=== PATIENT | female | born 1970 | race Caucasian/White ===

== ENCOUNTER 2024-09-29 12:42 | Inpatient (IN) | payer MEDICARE, OTHER ==
[~2024-09-29] VITALS: Ht 162.6 cm; Wt 71.7 kg
[2024-09-29 15:23] LABS: BASOPHILS # (AUTO) 0.1 K/uL (0.0-0.2); BASOPHILS % (AUTO) 0.2 % (0.0-2.0); HEMATOCRIT 29 % (33-45); HEMOGLOBIN 9.7 g/dL (11.5-14.8); LYMPHOCYTES # (AUTO) 30.8 K/uL (0.8-4.8); LYMPHOCYTES % (AUTO) 76.8 % (20.0-44.0); MEAN CORPUSCULAR HEMOGLOBIN 30 PG (26.0-33.0); MEAN CORPUSCULAR HGB CONC 33 g/dl (31.0-36.0); MEAN CORPUSCULAR VOLUME 89 fL (82-100); MONOCYTES # (AUTO) 0.8 K/uL (0.1-1.30); MONOCYTES % (AUTO) 1.9 % (2.0-12.0); NEUTROPHILS # (AUTO) 8.5 K/uL (1.8-8.9); NEUTROPHILS % (AUTO) 21.1 % (43.0-81.0); PLATELET COUNT (AUTO) 530 K/uL (150-450); RED BLOOD CELL COUNT(AUTO) 3.26 MIL/uL (4.0-5.2); RED CELL DISTRIBUTION WIDTH 14.9 % (11.5-15.0)
[2024-09-29 15:25] LABS: WHITE BLOOD COUNT (AUTO) 40.2 K/uL (4.3-11.0)
[2024-09-29 15:27] LABS: INR 0.99 (0.91-1.10); PROTHROMBIN TIME 10.5 SECS (9.2-11.1)
[2024-09-29 15:38] LABS: CALCIUM, SERUM 8.7 mg/dL (8.5-10.1); CREATININE 0.8 mg/dL (0.6-1.3); POTASSIUM 4.2 mmol/L (3.5-5.1)
[2024-09-29 15:50] LABS: APPEARANCE,URINE SLIGHTLY CLOUDY (CLEAR); BILIRUBIN,URINE 1+ (NEGATIVE); COLOR,URINE DARK YELLOW (YELLOW); KETONES,URINE 2+ mg/dL (NEGATIVE); LEUKOCYTE ESTERASE ,URINE NEGATIVE (NEGATIVE); NITRITE, URINE POSITIVE (NEGATIVE); PH,URINE 5.5 (5.0-8.0); PROTEIN,URINE 2+ mg/dl (NEGATIVE); UGLUCOSE NEGATIVE (NEGATIVE)
[2024-09-29 15:50] LABS: LYMPHOCYTES % (MANUAL) 73 % (16-48); MONOCYTES % (MANUAL) 1 % (0-11.0); NEUTROPHILS % (MANUAL) 26 (42-76); PLATELET ESTIMATE DECREASED
[2024-09-29 15:51] LABS: ANISOCYTOSIS 1+; OVALOCYTES 1+
[2024-09-29 15:52] LABS: ALBUMIN 2.4 g/dL (3.4-5.0); BILIRUBIN,DIRECT 0.2 mg/dL (0.0-0.2); BILIRUBIN,TOTAL 0.3 mg/dL (0.2-1.0); TOTAL PROTEIN, SERUM 6.6 g/dL (6.4-8.2)
[2024-09-29] MEDS ORDERED: MIDO5TAB4 PO (16:02)
[2024-09-29] MEDS ORDERED: FAMO20TA8 PO (16:02)
[2024-09-29] MEDS ORDERED: ASCO500T10 PO (16:02)
[2024-09-29] MEDS ORDERED: DOCU100C36 PO (16:02)
[2024-09-29] MEDS ORDERED: ONDA4TAB5 PO (16:02)
[2024-09-29] MEDS ORDERED: ARIP5TAB10 PO (16:02)
[2024-09-29] MEDS ORDERED: FOLI0.8T3 PO (16:02)
[2024-09-29] MEDS ORDERED: SERT50TA12 PO (16:02)
[2024-09-29] MEDS ORDERED: DIVA-78 PO (16:02)
[2024-09-29] MEDS ORDERED: SPIR50TA PO (16:02)
[2024-09-29] MEDS ORDERED: RISP1TAB97 PO (16:02)
[2024-09-29] MEDS ORDERED: LAMO25TA5 PO (16:02)
[2024-09-29] MEDS ORDERED: CYAN100096 PO (16:02)
[2024-09-29] MEDS ORDERED: FURO40TA5 PO (16:02)
[2024-09-29] MEDS ORDERED: MEGE400O4 PO (16:02)
[2024-09-29 16:13] LABS: BLOOD, URINE TRACE Ery/uL (NEGATIVE)
[2024-09-29 16:15] LABS: ADD URINE CULTURE YES; BACTERIA,URINE Few /HPF (None Seen); HYALINE CASTS, URINE Few /LPF (None Seen); MUCUS,URINE Moderate /LPF (None Seen); URINE AMORPHOUS URATE Moderate /HPF (None Seen); WBC,URINE 0-2 /HPF (0-3)
[2024-09-29] MEDS ORDERED: IV NS 0.9% 250 ML IV ONE (16:59)
[2024-09-29] MEDS ORDERED: IOHEXOL-300 100 ML VIAL IV ONE (16:59)
[2024-09-29] MEDS: IV NS 0.9% 500 ML BAG IV ONE (17:00)
[2024-09-29] MEDS: CEFTRIAXONE 1GM BAG (ER ONLY) 50 ML IV ONE (17:30)
[2024-09-29] MEDS ORDERED: ONDANSETRON HCL/PF 4 MG/2 ML VIAL IVP PRN (20:30)
[2024-09-29] MEDS ORDERED: MORPHINE SULFATE INJ 2 MG/ML DISP.SYRIN IV PRN (20:30)
[2024-09-29] MEDS ORDERED: ACETAMINOPHEN 325 MG TABLET PO PRN (20:30)
[2024-09-29] MEDS ORDERED: hydrALAZINE HCL IV 20 MG VIAL IV PRN (20:30)
[2024-09-29 20:35] VITALS: BP 119/93; TEMP 97.7; TEMP 97.9; O2SAT 97
[2024-09-29] MEDS ORDERED: VANCOMYCIN 1 GM /D5W 250 ML PB IV ONE (22:07)
[2024-09-29] MEDS: ENOXAPARIN SODIUM 40 MG/0.4 ML DISP.SYRIN SQ SCH (22:14)
[2024-09-29] MEDS: VANCOMYCIN 1.5 GM in IV D5W 500 ML IV ONE (22:18)
[2024-09-30 07:16] LABS: ALBUMIN 2.1 g/dL (3.4-5.0); BILIRUBIN,TOTAL 0.3 mg/dL (0.2-1.0); CALCIUM, SERUM 8.2 mg/dL (8.5-10.1); CREATININE 0.6 mg/dL (0.6-1.3); MAGNESIUM 2.2 mg/dL (1.8-2.4); PHOSPHORUS 3.7 mg/dL (2.5-4.9); POTASSIUM 3.4 mmol/L (3.5-5.1); TOTAL PROTEIN, SERUM 6.2 g/dL (6.4-8.2)
[2024-09-30 07:30] VITALS: BP 125/85; TEMP 98.1; O2SAT 95
[2024-09-30 07:34] LABS: BASOPHILS % (AUTO) 0.1 % (0.0-2.0); EOSINOPHILS # (AUTO) 0.1 K/uL (0.0-0.7); EOSINOPHILS % (AUTO) 0.2 % (0.0-6.0); HEMATOCRIT 30 % (33-45); HEMOGLOBIN 9.7 g/dL (11.5-14.8); LYMPHOCYTES # (AUTO) 27.9 K/uL (0.8-4.8); LYMPHOCYTES % (AUTO) 75.8 % (20.0-44.0); MEAN CORPUSCULAR HEMOGLOBIN 29 PG (26.0-33.0); MEAN CORPUSCULAR HGB CONC 32 g/dl (31.0-36.0); MEAN CORPUSCULAR VOLUME 89 fL (82-100); MONOCYTES # (AUTO) 0.9 K/uL (0.1-1.30); MONOCYTES % (AUTO) 2.5 % (2.0-12.0); NEUTROPHILS # (AUTO) 7.9 K/uL (1.8-8.9); NEUTROPHILS % (AUTO) 21.4 % (43.0-81.0); PLATELET COUNT (AUTO) 437 K/uL (150-450); RED BLOOD CELL COUNT(AUTO) 3.38 MIL/uL (4.0-5.2); RED CELL DISTRIBUTION WIDTH 15.6 % (11.5-15.0)
[2024-09-30 07:40] LABS: WHITE BLOOD COUNT (AUTO) 36.8 K/uL (4.3-11.0)
[2024-09-30 08:00] VITALS: BP 125/85; TEMP 98.1; O2SAT 95
[2024-09-30] MEDS: MIDODRINE HCL (5MG) 5 MG TABLET PO SCH (09:00)
[2024-09-30] MEDS ORDERED: SPIRONOLACTONE 50 MG TABLET PO SCH (09:00)
[2024-09-30] MEDS: LamoTRIgine 25 MG TABLET PO SCH (09:12)
[2024-09-30] MEDS: ARIPIPRAZOLE 5 MG TABLET PO SCH (09:12)
[2024-09-30] MEDS: FOLIC ACID 1 MG TABLET PO SCH (09:14)
[2024-09-30] MEDS: FAMOTIDINE (20 MG) 20 MG TABLET PO SCH (09:14)
[2024-09-30] MEDS: risperiDONE 1 MG TABLET PO SCH (09:15)
[2024-09-30] MEDS: SPIRONOLACTONE 25 MG TABLET PO SCH (09:15)
[2024-09-30] MEDS: FUROSEMIDE 40 MG TABLET PO SCH (09:15)
[2024-09-30] MEDS: SERTRALINE HCL 50 MG TABLET PO SCH (09:15)
[2024-09-30] MEDS: MEGESTROL ACETATE SUSP 400 MG/10 ML UDC PO SCH (09:16)
[2024-09-30] MEDS: ASCORBIC ACID 500 MG TABLET PO SCH (09:16)
[2024-09-30] MEDS: DIVALPROEX SODIUM 500 MG TABLET.DR PO SCH (09:16)
[2024-09-30] MEDS: CEFEPIME 2 GM in IV D5W 100 ML IV SCH (09:18)
[2024-09-30 09:28] LABS: LYMPHOCYTES % (MANUAL) 59 % (16-48); MONOCYTES % (MANUAL) 2 % (0-11.0)
[2024-09-30 09:29] LABS: NEUTROPHILS % (MANUAL) 39 (42-76); PLATELET ESTIMATE ADEQUATE
[2024-09-30] MEDS: VANCOMYCIN 1 GM in IV D5W 250 ML IV SCH (10:54)
[2024-09-30] MEDS: POTASSIUM CHLORIDE 20 MEQ TAB.PRT.SR PO ONE (12:30)
[2024-09-30 16:00] VITALS: BP 107/70; TEMP 98.2; O2SAT 96
[2024-09-30 16:08] LABS: C-REACTIVE PROTEIN 7.78 mg/dL (0.0-0.30)
[2024-09-30 17:03] LABS: RHEUMATOID FACTOR SCREEN NEGATIVE (NEGATIVE)
[2024-09-30 19:33] LABS: PROTEIN, BODY FLUID 4.2 G/DL
[2024-09-30 19:52] LABS: WBC, BODY FLUID 1233 /cu. mm. (0-200)
[2024-09-30 20:37] VITALS: BP 103/65; TEMP 98.6; O2SAT 96
[2024-09-30] MEDS ORDERED: CEFEPIME 2 GM in IV D5W 100 ML IV SCH (21:28)
[2024-09-30 23:20] LABS: MACROPHAGES, BODY FLUID 5; MONOCYTES,BODY FLUID 1 %; POLYNUCLEAR, BODY FLUID 16 % (0-25); TOTAL VOLUME,BODY FLUID 6000 mL
[2024-10-01 06:42] LABS: BASOPHILS % (AUTO) 0.1 % (0.0-2.0); EOSINOPHILS % (AUTO) 0.1 % (0.0-6.0); HEMATOCRIT 28 % (33-45); HEMOGLOBIN 9.2 g/dL (11.5-14.8); LYMPHOCYTES # (AUTO) 22.5 K/uL (0.8-4.8); LYMPHOCYTES % (AUTO) 75.5 % (20.0-44.0); MEAN CORPUSCULAR HEMOGLOBIN 30 PG (26.0-33.0); MEAN CORPUSCULAR HGB CONC 33 g/dl (31.0-36.0); MEAN CORPUSCULAR VOLUME 89 fL (82-100); MONOCYTES # (AUTO) 0.8 K/uL (0.1-1.30); MONOCYTES % (AUTO) 2.8 % (2.0-12.0); NEUTROPHILS # (AUTO) 6.4 K/uL (1.8-8.9); NEUTROPHILS % (AUTO) 21.5 % (43.0-81.0); PLATELET COUNT (AUTO) 466 K/uL (150-450); RED BLOOD CELL COUNT(AUTO) 3.11 MIL/uL (4.0-5.2); WHITE BLOOD COUNT (AUTO) 29.8 K/uL (4.3-11.0)
[2024-10-01 07:02] LABS: CALCIUM, SERUM 8.3 mg/dL (8.5-10.1); CREATININE 0.7 mg/dL (0.6-1.3); MAGNESIUM 2.2 mg/dL (1.8-2.4); PHOSPHORUS 3.2 mg/dL (2.5-4.9); POTASSIUM 3.5 mmol/L (3.5-5.1)
[2024-10-01 07:21] LABS: THYROID STIMULATING HORMONE 3.86 uIU/mL (0.358-3.74); URIC ACID 6.2 mg/dL (2.6-7.2)
[2024-10-01 07:30] VITALS: BP 102/72; TEMP 97.5; O2SAT 96
[2024-10-01 08:00] VITALS: BP 102/72; TEMP 97.5; O2SAT 96
[2024-10-01 08:26] LABS: LYMPHOCYTES % (MANUAL) 84 % (16-48); NEUTROPHILS % (MANUAL) 16 (42-76)
[2024-10-01 08:27] LABS: PLATELET ESTIMATE INCREASED
[2024-10-01 09:07] LABS: *ANA ANTI-CENTROMERE B AB <0.2 AI (0.0-0.9); *ANA ANTI-DNA(DS) AB, QN <1 IU/mL (0-9); *ANA ANTI-JO-1 <0.2 AI (0.0-0.9); *ANA ANTICHROMATIN ANTIBODY <0.2 AI (0.0-0.9); *ANA RNP ANTIBODIES <0.2 AI (0.0-0.9); *ANA SJOGREN'S ANTI-SS-A <0.2 AI (0.0-0.9); *ANA SJOGREN'S ANTI-SS-B <0.2 AI (0.0-0.9); *ANAANTI-SCLERODERMA-70 AB <0.2 AI (0.0-0.9); *ANASMITH AB <0.2 AI (0.0-0.9)
[2024-10-01] MEDS ORDERED: IV NS 0.9% 250 ML IV ONE (11:24)
[2024-10-01] MEDS ORDERED: CT SWABBABLE VALVE TRANS SET 1 EA INFUS.SET MC ONE (11:24)
[2024-10-01] MEDS ORDERED: IOHEXOL-300 100 ML VIAL IV ONE (11:24)
[2024-10-01 15:46] VITALS: BP 97/70; TEMP 97.9; O2SAT 98
[2024-10-01 16:00] VITALS: BP 100/70; TEMP 97.9; O2SAT 98
[2024-10-01 16:45] VITALS: BP 97/70
== END 2024-10-01 19:00 | DRG 755 ==
LOC: ER 13:00 → MED 18:11
PROVIDERS: ADMIT Internal Medicine; ATTEND Internal Medicine
PROC: 0W9G3ZX Drainage of Peritoneal Cavity, Percutaneous Approach, Diagnostic (ICD-10-PCS; principal; 2024-09-30)
DX: C56.2 Malignant neoplasm of left ovary (principal); C78.6 Secondary malignant neoplasm of retroperitoneum and peritoneum; R18.0 Malignant ascites; E87.1 Hypo-osmolality and hyponatremia; F03.918 Unspecified dementia, unspecified severity, with other behavioral disturbance; F03.94 Unspecified dementia, unspecified severity, with anxiety; D75.839 Thrombocytosis, unspecified; Z20.822 Contact with and (suspected) exposure to COVID-19; I11.0 Hypertensive heart disease with heart failure; I50.9 Heart failure, unspecified; J44.9 Chronic obstructive pulmonary disease, unspecified; F25.0 Schizoaffective disorder, bipolar type; Z86.718 Personal history of other venous thrombosis and embolism; F41.9 Anxiety disorder, unspecified; D64.9 Anemia, unspecified; Z79.899 Other long term (current) drug therapy; Z87.891 Personal history of nicotine dependence; Z88.0 Allergy status to penicillin; Z88.8 Allergy status to other drugs, medicaments and biological substances; K74.60 Unspecified cirrhosis of liver; F31.9 Bipolar disorder, unspecified; E87.6 Hypokalemia; D72.829 Elevated white blood cell count, unspecified; Z85.3 Personal history of malignant neoplasm of breast
CPT/HCPCS: 36415; 49083; 71045-TC; 71260-TC; 76641-TC; 76705-TC; 80048-TC; 80053-TC; 80076-TC; 80202-TC; 81001; 82378; 83605-TC; 83615-TC; 83735-TC; 84100-TC; 84443-TC; 84550-TC; 85025-TC; 85610-TC; 86140-TC; 86225; 86235; 86300; 86304; 86431-TC; 87040-TC; 87086-TC; 89051-TC; A4223; G0378; J0692; J0696; J1650; J3370; J3371; J7040; J7050; J7060; Q9967